=== PATIENT | male | born 1940 | race Two or more races ===

== ENCOUNTER → 2016-05-02 | Outpatient (CLI) | payer MEDICARE, OTHER ==
[~2016-05-02] MED LIST: ASPI-781 PO; CELE200C; LOVA20TA69; OMEP20CA16 PO; QUIN20TA16; ZOLP10TA PO
--- NOTE | 2016-05-02 19:57 | HKNOTE ---
DATE OF SERVICE: MAIN COMPLAINT: Dislocation of the left hip. HISTORY OF MAIN COMPLAINT: The patient underwent revision of a left hip femoral component on 2014. He had no problem with the hip until July of 2005 when the hip dislocated. A closed reduction was pe rformed. He had no further trouble with the hip until last week when suddenly the left hip gave way on him an d dislocated while he was standing in front of a mirror while he was standing up and twisting slight ly to reach for something. He was taken to a local hospital where the hip was reduced. He had no further dislocation of the hi p until a week ago when he was sitting in his golf cart and tried to get out with his left foot on t he ground and twisted his body and the hip dislocated again. Fortunately, they were able to reduce the dislocation in the emergency room under propofol anesthesi a. The patient now has 2 problems. 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 My recommendation to the patient is we should proceed as a one stage procedure to install a captured socket as well as to put a plate and cerclage wires around the femur. The surgery and some of the major possible complications were discussed with him and his in a fair amount of detail. The patient will call my compliance assistant, Param, to schedule the procedure in the near future. Dictated By: JOSHUA BARON/VERONIKA Conf#: [id number] DID#: [id number]
== END | disposition home or self-care (01) ==
LOC: HKI 14:44
DX: Z47.89 Encounter for other orthopedic aftercare (principal); Q65.02 Congenital dislocation of left hip, unilateral
CPT/HCPCS: G0463